=== PATIENT | male | born 1955 | race Caucasian/White ===

== ENCOUNTER 2017-04-05 13:56 | Emergency (ER) | payer MEDICARE ==
[2017-04-05 14:20] VITALS: BP 127/56
--- NOTE | 2017-04-05 14:53 | UC ---
General HPI - HPI Summary HPI Summary: pt presents with c/o N/V that began in January 2017 that has been intermittent. N /V resolved after a "few weeks" and now c/o sudden onset of vomiting that began on 04/01 . Pt reports vomiting 1 time a day with vomiting 2-3 times today. Pt also, c/o of inability to "keep fluids down". Pt also has c/o "bump" on distal sternum that "changes in size intermittently. Pt is a 2-3 ppd smoker X 49 years. Pt reports that he has lost 100 lbs since august 2016 due to decreased appetite. - History of Current Complaint Chief Complaint: UCGI Stated Complaint: VOMITING, BUMP ON CHEST Time Seen by Provider: 04/05/17 14:03 Hx Obtained From: Patient Onset/Duration: Gradual Onset, Lasting Weeks Timing: Intermittent Episodes Lasting: Onset Severity: Mild Current Severity: Mild Associated Signs & Symptoms: Positive: Vomiting - Allergy/Home Medications Allergies/Adverse Reactions: Allergies Allergy/AdvReac Type Severity Reaction Status Date / Time No Known Allergies Allergy Verified 04/05/17 14:20 Home Medications: Home Medications Cranberry (Vaccinium Macrocarp [Cranberry] 500 mg PO DAILY 04/05/17 [History Confirmed 04/05/17] Docusate Sodium [Stool Softener] 100 mg PO BID 04/05/17 [History Confirmed 04/05] Hylands Leg Cramps Otc 1 tab BID 04/05/17 [History Confirmed 04/05/17] Ibuprofen TAB* [Advil TAB*] 800 mg PO BID 04/05/17 [History Confirmed 04/05/17] Potassium 99 mg PO BID 04/05/17 [History Confirmed 04/05/17] Ranitidine TAB (NF) [Zantac TAB (NF)] 150 mg PO BID 04/05/17 [History Confirmed 04/05/17] Simethicone [Phazyme] 125 mg PO BID 04/05/17 [History Confirmed 04/05/17] PMH/Surg Hx/FS Hx/Imm Hx Previously Healthy: Yes GI/ History: Gastroesophageal Reflux - Surgical History Surgical History: Yes Surgery Procedure, Year, and Place: right eye as a kid. hernia repair age 21 - Family History Known Family History: Positive: Other - Brothers positive for prostate cancer - Social History Lives: With Family Alcohol Use: Rare Substance Use Type: None Smoking Status (MU): Heavy Every Day Tobacco Smoker Type: Cigarettes Amount Used/How Often: 2-3 ppd since being a kid Review of Systems Constitutional: Fatigue, Other - weight loss, Skin: Negative Eyes: Negative ENT: Negative Respiratory: Negative Cardiovascular: Negative Gastrointestinal: Vomiting, Nausea Genitourinary: Other - decrease in frequency Motor: Negative Neurovascular: Negative Musculoskeletal: Negative Neurological: Negative Psychological: Negative All Other Systems Reviewed And Are Negative: Yes Physical Exam Triage Information Reviewed: Yes Appearance: Well-Appearing Vital Signs: Initial Vital Signs Temp 98.5 F 04/05/17 14:13 Pulse 77 04/05/17 14:13 Resp 16 04/05/17 14:13 BP 127/56 04/05/17 14:13 Pulse Ox 97 04/05/17 14:13 Vital Signs Reviewed: Yes Eye Exam: Normal ENT Exam: Normal Neck exam: Normal Respiratory Exam: Normal Cardiovascular Exam: Normal Abdominal Exam: Normal Abdomen Description: Positive: Nontender, Soft Musculoskeletal: Positive: Other: - xyphoid process normal Neurological Exam: Normal Psychological Exam: Normal Course/Dx - Course Course Of Treatment: I spoke to the pt about the results of the chest xray and UA. I referrred the pt to a PCP and urologist and discussed the need to follow up as soon as possible. Pt verbalized understanding and agreed to plan of care. - Differential Dx - Multi-Symptom Provider Diagnoses: nausea. hematuria Discharge - Discharge Plan Condition: Stable Disposition: HOME Prescriptions: Ondansetron ODT TAB* [Zofran 4 MG Odt TAB*] 4 mg PO Q8H PRN #15 tab.odt PRN Reason: Nausea Patient Education Materials: Acute Nausea and Vomiting (ED), Hematuria (ED) Referrals: [facility] [Outside] Bill Mooney MD [Medical Doctor] -
--- NOTE | 2017-04-05 14:59 | RAD ---
INDICATION: Weight loss COMPARISON: None TECHNIQUE: PA and lateral dual-energy views were obtained. FINDINGS: Bones/Soft Tissues: There are no acute bony findings. Cardiomediastinal: The cardiomediastinal silhouette is normal. Lungs: There are no infiltrates. There is mild coarsening of interstitium Pleura: There are no pleural effusions. Other: None IMPRESSION: NO ACTIVE DISEASE.
== END 2017-04-05 15:16 | disposition home or self-care (01) ==
LOC: UCCORT 13:56
DX: R11.2 Nausea with vomiting, unspecified (principal); R31.9 Hematuria, unspecified; F17.210 Nicotine dependence, cigarettes, uncomplicated
CPT/HCPCS: 71020; 81003; 99202; G0463